=== PATIENT | female | born 1970 ===

== ENCOUNTER 2022-09-19 07:05 | Day surgery (SDC) | payer OTHER ==
[~2022-09-19 07:05] MED LIST: CARDIZEM CD300 MG PO; HYDRALAZINE HCL25 MG PO; ZESTRIL10 M1 PO
== END 2022-09-19 20:20 | disposition home or self-care (01) ==
LOC: CIR.AMB 07:05
PROVIDERS: ATTEND Specialist
DX: R93.89 Abnormal findings on diagnostic imaging of other specified body structures (principal); N85.8 Other specified noninflammatory disorders of uterus; I10 Essential (primary) hypertension